=== PATIENT | female | born 1945 | race Caucasian/White ===

== ENCOUNTER 2025-04-10 10:37 | Emergency (ER) | payer OTHER, SELFPAY ==
[2025-04-10] VITALS (21 sets, daily range): BP systolic 84–145; BP diastolic 47–98; BMI 28.5
[2025-04-10 11:38] LABS: Hematocrit 42.3 % (37.0-47.0); Hemoglobin 13.9 g/dL (12.0-16.0); Mean Corp Hgb Conc. 32.9 g/dL (33.0-37.0); Mean Corpuscular Volume 92.0 fL (81.0-99.0); Nucleated Red Blood Cells % 0 %; Platelet Count 263 10^3/uL (130-400); Red Cell Dist. Width 12.0 % (11.5-14.5)
[2025-04-10 11:49] LABS: ALT (SGPT) 31 U/L (0-35); AST (SGOT) 29 U/L (14-36); Albumin 4.2 g/dl (3.5-5.0); Alkaline Phosphatase 99 U/L (38-126); Blood Urea Nitrogen 18 mg/dl (7-17); Calcium 9.7 mg/dl (8.4-10.2); Carbon Dioxide 26 mmol/L (22-30); Chloride 102 mmol/L (98-107); Glucose 118 mg/dl (70-99); Potassium 4.5 mmol/L (3.5-5.1); Sodium 137 mmol/L (135-145); Total Protein 7.3 g/dl (6.3-8.2); eGFR > 60.00
[2025-04-10] MEDS: LOPRESSOR 25 MG PO (11:56)
[2025-04-10] MEDS: LOPRESSOR 5 MG IV (11:57)
--- NOTE | 2025-04-10 13:24 | ED.GENMED ---
History of Present Illness
<Tay Botello PA-C - Last Filed: 04/10/25 14:44>
General
Chief Complaint: Cardiac Symptoms
Source: patient and spouse
Time Seen by Provider: 04/10/25 11:14
History of Present Illness
History of Present Illness:
79-year-old female with past medical history of atrial fibrillation, hypertension and hyperlipidemia presenting to the emergency department for evaluation after she felt some mild palpitations this morning (no palpitations currently) and was alerted
by her Apple Watch that she was in atrial fibrillation. Patient states that at time of my exam she has no symptoms including chest pain, shortness of breath, diaphoresis, exertional dyspnea, orthopnea, lower extremity edema or any other concerns.
She reports that normally she is readily compliant with all of her medications although notes yesterday she had to hold her Eliquis because she had dental work done but then was supposed to resume her Eliquis today. She takes 25 mg of metoprolol
once in the morning and 12-1/2 mg of metoprolol in the evening time, took a second dose of her 25 mg already this morning but without relief of the elevated heart rate. Patient follows with Dr. Rajiv Hernandez at [facility] cardiology. She has no other
concerns at this time. She does report being cardioverted about 2 to 3 years ago here at this facility.
Past History
<Tay Botello PA-C - Last Filed: 04/10/25 14:44>
Past History
ED Past Medical History: Arrthythmia, HTN, Hypercholesterolemia and Other (colitis)
ED Past Surgical History: None
Patient has exhibited threatening behavior?: No
PSI?: No
Social History
Tobacco: Non-smoker
Alcohol: None
Drug: None
Personal:
Living: with family
Review of Systems
<Tay Botello PA-C - Last Filed: 04/10/25 14:44>
Review of Systems
All Other Systems: ROS reviewed and negative except as documented in HPI and ROS
Phy Exam
<Tay Botello PA-C - Last Filed: 04/10/25 14:44>
Physical Exam
Physical Exam:
GENERAL: Alert , in no apparent distress
EYE: Clear conjunctiva
NECK: Supple
ENT: o/p clr, mmm.
CARDIAC: Irregularly irregular, tachycardic with rates between 115 and 128 bpm
LUNGS: Clear breath sounds bilaterally, no acute respiratory distress,
NEUROLOGICAL: Alert and oriented
SKIN: Warm and dry, skin intact.
MUSCULOSKELETAL: No edema, well perfused.
PSYCH: Normal and appropriate interaction.
Scores
<Tay Botello PA-C - Last Filed: 04/10/25 14:44>
Heart Failure Risk
Heart Failure Risk Score: Not Applicable
Heart Score for Chest Pain Patients
STEMI patient?: Not applicable
Withdrawal Assessment of Alcohol
Withdrawal Assessment Completed?: Not applicable
Course
<Tay Botello PA-C - Last Filed: 04/10/25 14:44>
Orders/Labs/Results
Orders:
Orders
04/10/25 10:37
EKG [Electrocardiogram (*1)] Urgent
Reason for Study: Atrial Fibrillation
04/10/25 10:38
EKG- Treatment ONCE
04/10/25 11:11
Electrocardiogram (*1) Urgent
Reason for Study: Chest Pain
EKG- Treatment ONCE
IV Insert/Care/Rem.- Treatment PRN
04/10/25 11:20
Complete Blood Count/With Diff Urgent
Comprehensive Metabolic Panel Urgent
04/10/25 11:39
Metoprolol [Lopressor] 25 mg PO NOW STA
Metoprolol [Lopressor] 5 mg IV NOW STA
04/10/25 12:47
0.9% Sodium Chloride 500 ml [Nss] 500 ml IV BOLUS
04/10/25 13:00
Diltiazem 125 mg/125 ml Nss [Cardizem] 125 mg in 125 ml IV PER PROTOCOL
Initial dose in mg/hr, then titrate:: 5
Titrate to keep:: Heart rate 80-100 bpm
Titrate by mg/hr:: 5 mg/hr
Frequency of titrations (minutes):: 15
Maximum dose in mg/hr:: 15
04/10/25 13:06
EKG- Treatment ONCE
04/10/25 13:07
EKG- Treatment ONCE
04/10/25 13:29
Acetaminophen [Tylenol] 650 mg .ROUTE .STK-MED ONE
04/10/25 13:30
Acetaminophen [Tylenol] 650 mg PO NOW STA
04/10/25 13:52
EKG [Electrocardiogram (*1)] Urgent
Reason for Study: Bradycardia / Tachycardia
EKG- Treatment ONCE
Abnormal Lab Results
04/10/25
11:20
MCHC 32.9 L g/dL
(33.0-37.0)
Absolute Monos (auto) 1.0 H 10^3/uL
(0.1-0.6)
Lymphocytes % 19.9 L %
(20.5-51.1)
Monocytes % 12.7 H %
(1.7-9.3)
BUN 18 H mg/dl
(7-17)
Glucose 118 H mg/dl
(70-99)
04/10/25 11:20
04/10/25 11:20
Vital Signs
Initial and Last Documented VS:
Initial Vital Signs
Temp Pulse Resp BP Pulse Ox
98.2 F 122 16 145/98 98
04/10/25 10:44 04/10/25 10:44 04/10/25 10:44 04/10/25 10:44 04/10/25 10:44
Last Documented Vital Signs
Temp Pulse Resp BP Pulse Ox
98.2 F 64 18 109/71 94
04/10/25 10:44 04/10/25 17:15 04/10/25 17:15 04/10/25 17:15 04/10/25 17:15
<Mayela Casey PA-C - Last Filed: 04/10/25 20:24>
Orders/Labs/Results
Orders:
Orders
04/10/25 10:37
EKG [Electrocardiogram (*1)] Urgent
Reason for Study: Atrial Fibrillation
04/10/25 10:38
EKG- Treatment ONCE
04/10/25 11:11
Electrocardiogram (*1) Urgent
Reason for Study: Chest Pain
EKG- Treatment ONCE
IV Insert/Care/Rem.- Treatment PRN
04/10/25 11:20
Complete Blood Count/With Diff Urgent
Comprehensive Metabolic Panel Urgent
04/10/25 11:39
Metoprolol [Lopressor] 25 mg PO NOW STA
Metoprolol [Lopressor] 5 mg IV NOW STA
04/10/25 12:47
0.9% Sodium Chloride 500 ml [Nss] 500 ml IV BOLUS
04/10/25 13:00
Diltiazem 125 mg/125 ml Nss [Cardizem] 125 mg in 125 ml IV PER PROTOCOL
Initial dose in mg/hr, then titrate:: 5
Titrate to keep:: Heart rate 80-100 bpm
Titrate by mg/hr:: 5 mg/hr
Frequency of titrations (minutes):: 15
Maximum dose in mg/hr:: 15
04/10/25 13:06
EKG- Treatment ONCE
04/10/25 13:07
EKG- Treatment ONCE
04/10/25 13:29
Acetaminophen [Tylenol] 650 mg .ROUTE .STK-MED ONE
04/10/25 13:30
Acetaminophen [Tylenol] 650 mg PO NOW STA
04/10/25 13:52
EKG [Electrocardiogram (*1)] Urgent
Reason for Study: Bradycardia / Tachycardia
EKG- Treatment ONCE
Abnormal Lab Results
04/10/25
11:20
MCHC 32.9 L g/dL
(33.0-37.0)
Absolute Monos (auto) 1.0 H 10^3/uL
(0.1-0.6)
Lymphocytes % 19.9 L %
(20.5-51.1)
Monocytes % 12.7 H %
(1.7-9.3)
BUN 18 H mg/dl
(7-17)
Glucose 118 H mg/dl
(70-99)
04/10/25 11:20
04/10/25 11:20
Vital Signs
Initial and Last Documented VS:
Initial Vital Signs
Temp Pulse Resp BP Pulse Ox
98.2 F 122 16 145/98 98
04/10/25 10:44 04/10/25 10:44 04/10/25 10:44 04/10/25 10:44 04/10/25 10:44
Last Documented Vital Signs
Temp Pulse Resp BP Pulse Ox
98.2 F 64 18 109/71 94
04/10/25 10:44 04/10/25 17:15 04/10/25 17:15 04/10/25 17:15 04/10/25 17:15
<Tay Botello PA-C - Last Filed: 04/10/25 14:44>
MDM/Problems Addressed
Differential Diagnosis Includes:
Atrial fibrillation
Valvular dysfunction
ACS
Electrolyte abnormality
Complication from dental procedure done yesterday
Medication interaction
MDM/Problems Addressed:
79-year-old female with a known past medical history of atrial fibrillation presenting to the emergency department with A-fib with RVR. Patient asymptomatic. She was alerted by her Apple Watch which is what prompted her to come to the ER. Rates
between 120-125 at time of my exam. We discussed risk versus benefit of rate control versus cardioversion and given that she had to miss yesterday's dose of Eliquis we ultimately decided it would be safer to perform rate control. Will treat her
here with a dose of Lopressor IV and an additional 25 mg p.o. Will observe for response. Disposition pending. Will contact patient's cardiology office to ensure close follow-up visit.
Chronic conditions affecting care: Arrhythmia
Acute Exacerbation and/or Progression of Chronic Illness: Arrhythmia
<Tay Botello PA-C - Last Filed: 04/10/25 14:44>
*Pulse Oximetry
SaO2: 93
Oxygen Mode of Delivery: Room air
Patient hypoxic: no
*EKG
Heart Rate: 121
Rate: tachycardiac
Rhythm: a-fib
Copan: normal axis
Ischemia: no ischemia
*Platform Mill Supervisor Interpretation
Rate: tachycardiac
Heart Rate: 118
Rhythm: a-fib
*Critical Care Note
Total Time (30-74mins, 75-104mins- exclusive of procedures): 30
comment:
Critical care statement: A total of 30 minutes of critical care time was provided for this patient. This includes management of unstable vital signs, evaluation of the patient at bedside, reviewing the patient's pertinent medical records, discussion
with consultants, review of old EKGs and review of pertinent medical records. This time with separate from time utilized to perform the aforementioned documented procedures
<Tay Botello PA-C - Last Filed: 04/10/25 14:44>
Comment
Comment:
Patient HR did not improve following additional Lopressor IV and orally so decision was made to give her a Cardizem infusion and 500 mL bolus of normal saline for maintaining her blood pressure, prior to the Cardizem infusion being given she went to
the bathroom and upon returning to her hospital bed was noted to be back into a normal sinus rhythm. Repeat EKG confirms this. I was able to speak to the patient's cardiology office and they will follow-up with her early next week for repeat
visit. Plan was to discharge patient home on her continued beta-rachell but that we would increase her from 12-1/2 mg at night to a full 25 mg dose.
Shortly after discharging the patient while nursing staff was about to take IV out they noticed patient had a dip in her heart rate into the 30s, patient remained asymptomatic however given her now bradycardia we will continue to observe patient.
She remains asymptomatic. I did discuss the case with our cardiology team here who states as long as patient remains asymptomatic they would be okay with us just continuing to observe the patient here in the ER and would recommend she continue her
typical beta-rachell dose at home and does not need to increase dose at nighttime. Patient is okay remaining in the ER to continuously be observed due to her bradycardia. Repeat EKG was done. Her heart rate seems to have steadied around 45 to 55
bpm.
Patient Management
Discussion with other providers: [employer]obile T[employer] Builder
<Mayela Casey PA-C - Last Filed: 04/10/25 20:24>
Update Note
Update Note:
Patient observed for several hours. Heart rate improved to the 60-70 range and blood pressure stable at 109/71. On reassessment, patient is asymptomatic and is requesting to be discharged. She is able to ambulate without any recurrent symptoms.
Patient stable for discharge with plan for outpatient follow-up with her head stock transfer clerk.
ED Attending Note
<Tay Botello PA-C - Last Filed: 04/10/25 14:44>
-
Portions of this chart may have been created with voice recognition software.� Occasional wrong word or��sound alike� substitutions may have occurred due to the inherent limitations of voice recognition software.
Discharge Plan
Departure
Patient Disposition: Home (Routine Discharge)
Date of Disposition: 04/10/25
Time of Disposition: 17:19
Patient with high blood pressure during this ER visit?: Yes
Discharge Problem:
Atrial fibrillation
Instructions: Atrial fibrillation (DC)
Referrals:
Frank Palafox MD [Family Provider]
Rajiv Hernandez MD [Non-Admitting Privileges, Internal Medicine]
Activity Restrictions/Additional Instructions:
Continue your normal medicine symptoms as they are prescribed
Interventions
Interventions:
*Risk Screen - Suicide Last Done: 04/10/25 10:44
*General Assessment Last Done: 04/10/25 11:55
*Neglect/Abuse Screening Last Done: 04/10/25 10:44
*ED- Fall Risk Assessment Last Done: 04/10/25 11:55
*ED COVID-19 Vaccine History Last Done: 04/10/25 11:55
*Nursing Disposition Last Done: 04/10/25 17:25
ED- Cardiac Assessment Last Done: 04/10/25 11:55
ED- Pulmonary Assessment Last Done: 04/10/25 11:55
Discharge Date and Time
Discharge Date/Time: 04/10/25 17:26
Print Language: NORWEGI[place]
[2025-04-10] MEDS: NSS IV (13:26)
[2025-04-10] MEDS: TYLENOL 650 MG PO (13:30)
[2025-04-10] MEDS: NSS 500 IV (13:33)
== END 2025-04-10 17:26 | disposition home or self-care (01) ==
LOC: EMR 10:37
PROVIDERS: Emergency Medicine; EMERGENCY PHYSICIAN Emergency Medicine; FAMILY PHYSICIAN Internal Medicine
DX: I48.91 Unspecified atrial fibrillation (principal); I10 Essential (primary) hypertension; E78.00 Pure hypercholesterolemia, unspecified
CPT/HCPCS: 96374; 99291; 80053; 85025; 93005